=== PATIENT | male | born 1955 | race Caucasian/White ===

== ENCOUNTER → 2018-06-21 | Outpatient (CLI) | payer OTHER ==
[2018-06-21 15:43] LABS: Basophils # (A) 0.1 k/uL (0-0.2); Basophils % (A) 1 %; Eosinophils # (A) 0.1 k/uL (0-0.7); Eosinophils % (A) 2 %; HCT 49.8 % (39.0-53.0); HGB 16.5 gm/dL (13.0-17.5); Lymphocytes # (A) 1.9 k/uL (1.0-4.8); Lymphocytes % (A) 27 %; MCH 32.5 pg (25.0-35.0); MCHC 33.1 g/dL (31.0-37.0); MCV 98.2 fL (80.0-100.0); Monocytes # (A) 0.5 k/uL (0-1.0); Monocytes % (A) 7 %; Neutrophils # (A) 4.3 k/uL (1.3-7.7); Neutrophils % (A) 61 %; Platelet Count 248 k/uL (150-450); RBC 5.07 m/uL (4.30-5.90); RDW 12.6 % (11.5-15.5)
[2018-06-21 15:50] LABS: Anion Gap 8 mmol/L; Blood Urea Nitrogen 10 mg/dL (9-20); Carbon Dioxide 27 mmol/L (22-30); Chloride 102 mmol/L (98-107); Glucose 89 mg/dL (74-99); Potassium 4.6 mmol/L (3.5-5.1); Sodium 137 mmol/L (137-145)
== END | disposition home or self-care (01) ==
LOC: LABPAT 13:24
PROVIDERS: ATTEND Urology
DX: Z01.818 Encounter for other preprocedural examination (principal); C61 Malignant neoplasm of prostate; R35.0 Frequency of micturition; I10 Essential (primary) hypertension; Z79.899 Other long term (current) drug therapy; Z01.812 Encounter for preprocedural laboratory examination
CPT/HCPCS: 36415; 80048; 85025; 87086; 93005

== ENCOUNTER 2018-06-28 06:14 | Inpatient (IN) | payer OTHER ==
--- NOTE | 2018-06-24 17:02 | P.GSHP ---
History of Present Illness H&P Date: 06/24/18 Chief Complaint: Prostate cancer The patient is a 62-year-old white male found to have a PSA level of 4.61. He has no family history of prostate cancer. QUINN revealed an anodular prostate. Prostate ultrasound revealed a prostate volume of 22.5 mL. Hypoechogenicity was seen within the left mid gland. 4 of 12 biopsies showed [place] 7 (3+4) adenocarcinoma, 2 in the left mid gland, one at the right mid gland, and one at the right apex. The Prolaris score is 3.4. I had a lengthy discussion with the patient and his . We discussed alternative treatment options, primarily robotic prostatectomy versus IMRT. He has elected to undergo partial nerve sparing RALP with bilateral pelvic lymphadenectomy. - Constitutional Constitutional: Denies weight loss - Genitourinary (Male) Genitourinary: Reports nocturia, Denies erectile dysfunction Past Medical History Past Medical History: Cancer, Hypertension, Prostate Disorder Additional Past Medical History / Comment(s): prostate cancer History of Any Multi-Drug Resistant Organisms: None Reported Additional Past Surgical History / Comment(s): growth on knee removed Past Anesthesia/Blood Transfusion Reactions: No Reported Reaction Smoking Status: Current every day smoker - Past Family History Mother Family Medical History: Cancer Additional Family Medical History / Comment(s): breast cancer Medications and Allergies Home Medications Medication Instructions Recorded Confirmed Type Lisinopril-Hctz 20-25 mg 1 tab PO DAILY 06/18/18 06/18/18 History [Zestoretic 20-25] Multivitamin/Iron/Folic Acid 1 each PO DAILY 06/18/18 06/18/18 History [Centrum Adults Tablet] amLODIPine BESYLATE 5 mg PO DAILY 06/18/18 06/18/18 History Allergies Allergy/AdvReac Type Severity Reaction Status Date / Time No Known Allergies Allergy Verified 06/18/18 14:09 Surgical - Exam - General well developed, well nourished, no distress - Respiratory normal respiratory effort, clear to auscultation - Cardiovascular Rhythm: regular Abnormal Heart Sounds: no systolic murmur, no diastolic murmur, no rub, no S3 Gallop, no S4 Gallop, no click, no other - Abdomen Abdomen: soft, non tender, no guarding, no rigid, no rebound Hernia: no none, no inguinal, no epigastric, no incisional, no reducible, no femoral, no umbilical, no scrotal, no incarcerated - Genitourinary normal penis with no external lesions, testicles non-tender - Rectum Rectum: normal sphincter tone, no masses - Psychiatric oriented to time, oriented to person, oriented to place, speech is normal, memory intact Assessment and Plan (1) Malignant neoplasm of prostate Status: Acute Code(s): C61 - MALIGNANT NEOPLASM OF PROSTATE SNOMED Code(s): 931532729 Plan: Partial nerve sparing robotic-assisted laparoscopic radical prostatectomy (RALP) with bilateral pelvic lymphadenectomy. The procedure has been reviewed in detail with the patient and his . Potential risks were discussed, which include anesthesia, bleeding, infection, bowel injury, neurovascular injury, lymphocele, urinary leak, and vesical neck contracture. The possible need to convert to an open procedure was discussed. The possible need for adjuvant therapy was also discussed. The patient understands the likelihood of postoperative urinary incontinence, which may fail to resolve. He is also aware of the possibility of postoperative erectile dysfunction despite partial nerve- sparing.
[~2018-06-28 06:14] MED LIST: DEXAMETHASONE SOD PHOSPHATE 10 MG/ML 1 ML VIAL IV ONE; HEPARIN SODIUM,PORCINE 5,000 UNIT/ML 1 ML VIAL SQ ONE; HYDROmorphone 0.5 MG/0.5 ML SYRINGE IVP PRN; MIDAZOLAM (PF) 2 MG/2 ML VIAL IV PRN; ONDANSETRON 4 MG/2 ML VIAL IVP ONE; SCOPOLAMINE 1.5MG/72HR PATCH TRANSDERM ONE; ceFAZolin IN SWFI 2 GM/20 ML SYRINGE IVP ONE
[2018-06-28] MEDS: LACTATED RINGERS 1,000 ML IV SCH ×2 (07:01→07:07)
[2018-06-28] MEDS ORDERED: LIDOCAINE 1% 20 ML VIAL (10MG/ML) FOR IV START INTRADERMA ONE (07:02)
[2018-06-28] MEDS ORDERED: HYDROmorphone (PF) 1 MG/ML ONE (07:25)
[2018-06-28] MEDS ORDERED: KETAMINE 10 MG/ML 20 ML VIAL ONE (07:25)
[2018-06-28] MEDS ORDERED: fentaNYL (PF) 50 MCG/ML 2 ML AMP ONE (07:25)
[2018-06-28] MEDS ORDERED: LIDOCAINE 1% INJ 10MG/ML (20 ML MDV) ONE (07:25)
[2018-06-28] MEDS ORDERED: ePHEDrine SULFATE/0.9% NACL/PF 50 MG/5 ML SYRINGE IV ONE (07:25)
[2018-06-28] MEDS ORDERED: MIDAZOLAM 2 MG/2 ML VIAL ONE (07:25)
[2018-06-28] MEDS ORDERED: PROPOFOL 10 MG/ML 20 ML VIAL IV ONE (07:25)
[2018-06-28] MEDS ORDERED: GLYCOPYRROLATE 0.2 MG/ML 2 ML VIAL ONE (07:25)
[2018-06-28] MEDS ORDERED: SUCCINYLCHOLINE CHLORIDE 100 MG/5 ML SYR IV ONE (07:25)
[2018-06-28] MEDS ORDERED: NEOSTIGMINE 1 MG/ML 10 ML VIAL ONE (07:25)
[2018-06-28] MEDS ORDERED: ROCURONIUM BROMIDE 10 MG/ML 10 ML VIAL IV ONE (07:25)
[2018-06-28] MEDS ORDERED: BUPIVACAINE (PF) 0.5% 30 ML VIAL SQ ONE (08:25)
--- NOTE | 2018-06-28 11:13 | P.OP ---
Date of Procedure: 06/28/18 Preoperative Diagnosis: Adenocarcinoma of the prostate, clinical stage TIc NX M0 Postoperative Diagnosis: Same Procedure(s) Performed: Robotic-assisted laparoscopic prostatectomy (RALP) with bilateral pelvic lymphadenectomy Anesthesia: VERONICA Surgeon: Junior Main Mixer And Scaler #1: Carolina Morales Estimated Blood Loss (ml): 150 IV fluids (ml): 1,100 Condition: stable Disposition: PACU Indications for Procedure: The patient is a 62-year-old white male found to have a PSA level of 4.61. He has no family history of prostate cancer. QUINN revealed an anodular prostate. Prostate ultrasound revealed a prostate volume of 22.5 mL. Hypoechogenicity was seen within the left mid gland. 4 of 12 biopsies showed [place] 7 (3+4) adenocarcinoma, 2 in the left mid gland, one at the right mid gland, and one at the right apex. The Prolaris score is 3.4. I had a lengthy discussion with the patient and his . We discussed alternative treatment options, primarily robotic prostatectomy versus IMRT. He has elected to undergo partial nerve sparing RALP with bilateral pelvic lymphadenectomy. Operative Findings: No evidence of extraprostatic disease. Description of Procedure: The patient was taken in the operating room and placed in the dorsal lithotomy position, with his legs supported in Gabriel stirrups. He was carefully positioned on a beanbag for stability. The abdomen and external genitalia were prepped and draped sterilely. A Campo catheter was inserted. The Veress needle was passed through the anterior abdominal wall immediately cephalad to the umbilicus, and insufflation was performed to a pressure of 20 mm Hg. Once insufflation was performed, the Veress needle was removed and a supraumbilical incision was made, through which a 12 mm camera port was placed. Under camera guidance, 3 8 mm robotic ports were placed, 2 on the left and one on the right. An additional 12 mm port was placed on the right lateral side for use as an medical assistant supervisor port. A 5 mm port was placed to the right of the camera port for suction. The patient was placed in Trendelenburg position, and docking was then performed to the da David system utilizing a 4-arm approach. The abdomen was examined. The sigmoid colon was mobilized out of the pelvis. The peritoneum was incised lateral to the medial umbilical ligaments bilaterally, exposing the pubis. The peritoneum was then incised across the midline, allowing the bladder flap to be taken down. The endopelvic fascia was opened bilaterally, and muscular attachments from the urogenital diaphragm were swept away from the prostate. Bilateral pelvic lymphadenectomies were performed in the standard fashion. The peritoneal incisions were extended in a cephalad direction, and the vas deferens were divided bilaterally. Margins of dissection were the bifurcation of the iliac vessels proximally, the circumflex iliac vein distally, the external iliac artery laterally, and the obturator nerve medially. A combination of sharp and blunt dissection was used. Care was taken to avoid any neurovascular injury, and the use of monopolar electrocautery was avoided immediately adjacent to neurovascular structures. The lymphatic package was clipped distally. No enlarged lymph nodes were encountered. There were no complications. The vesical neck was incised transversely, down to the lumen. The Campo catheter was brought out through the anterior vesical neck incision and was used for traction. The posterior aspect of the vesical neck was incised, such that the full-thickness of the vesical neck was divided. The anterior layer of the Denonvilliers fascia was incised, exposing the vas deferens. Each were isolated and divided. Next, each of the seminal vesicles were dissected away from adjacent tissues, and vascular attachments were cauterized and divided. The posterior leaf of Denonvilliers fascia was incised transversely, allowing entry into the plane between the prostate and rectum. With lateral spreading, this plane was developed down to the apex. This exposed the lateral vascular pedicles bilaterally. These were clipped and divided in an antegrade fashion, down to the apex. The use of electrocautery was avoided to prevent thermal damage to the nerves. The remaining apical attachments were swept away from the prostate. The dorsal venous complex was incised, as well as periurethral tissue. At this point, only the urethra remained intact. This was transected immediately distal to the prostatic apex using cold scissors. The specimen was placed within a specimen bag. The dorsal venous complex was sutured using a V-Loc suture in a running fashion. The suture was passed through the periosteum of the pubis periurethral support. A second V-Loc suture was then used to place the Chandra stitch, incorporating the rhabdosphincter and the edge of Denonvilliers fascia. This allowed the bladder to be taken down to the urethra, leaving the vesical neck immediately adjacent to the urethra. The vesicourethral anastomosis was then performed using a V-Loc suture in a running fashion. After completing the anastomosis, an 18-Greenlandic Campo catheter was placed and approximately 150 mL of 0.9 normal saline were instilled into the bladder. No extravasation of irrigant from the vesicourethral anastomosis was noted. Hemostasis was excellent, and Surgicel was placed over the vascular pedicles. Tisseel was sprayed into the pelvis over the vascular pedicles, dorsal vein, and vesicourethral anastomosis. The patient was returned to the supine position. Undocking was performed, and the specimen bag sutures were passed through the camera port. After removing all the ports and allowing all of the CO2 to be released from the peritoneal cavity, the camera port incision was enlarged to allow removal of the surgical specimen. The fascia of this incision was then closed using 0 Vicryl suture in an interrupted [id number] fashion. Each of the skin incisions were then closed using 4-0 Monocryl suture in a subcuticular fashion. Marcaine was injected at each of the incision sites. Dermabond was applied to each incision. The Campo catheter was connected to gravity drainage. All sponge and needle counts were correct. The patient tolerated the procedure well was taken to the recovery room in stable condition.
[2018-06-28] MEDS ORDERED: ACETAMINOPHEN TAB 325 MG TAB PO PRN (11:14)
[2018-06-28] MEDS ORDERED: ONDANSETRON 4 MG/2 ML VIAL IVP PRN (11:14)
[2018-06-28] MEDS ORDERED: LACTATED RINGERS 1,000 ML IV ONE (11:15)
[2018-06-28 13:57] VITALS: BMI 26.8
[2018-06-28] MEDS: DEXTROSE 5%-0.45% NACL 1,000 ML IV SCH ×2 (14:39→17:26)
[2018-06-28] MEDS: HYDROmorphone 1 MG/ML 1 ML SYRINGE IVP PRN (17:18)
[2018-06-28] MEDS: VARENICLINE 1 MG TAB PO SCH (22:05)
[2018-06-28] MEDS: HEPARIN SODIUM,PORCINE 5,000 UNIT/ML 1 ML VIAL SQ SCH (22:05)
[2018-06-29] MEDS: HYDROmorphone 1 MG/ML 1 ML SYRINGE IVP PRN ×2 (00:51→20:41)
[2018-06-29] MEDS: DEXTROSE 5%-0.45% NACL 1,000 ML IV SCH ×3 (00:57→16:47)
[2018-06-29] MEDS: KETOROLAC 30 MG/ML 1 ML VIAL IVP PRN ×2 (07:43→20:43)
[2018-06-29 07:48] VITALS: RESP 16
--- NOTE | 2018-06-29 09:53 | P.PN ---
Subjective Progress Note Date: 06/29/18 The patient is in his first postoperative day from a robotic-assisted prostatectomy. The surgery was uneventful. He had a moderate amount of discomfort overnight. His urine output is been marginal. On examination his abdomen was soft. There is some bruising on the left lateral side consistent with some perioperative bleeding. His vital signs are stable. His urine is flowing freely . Rest of the examination is unremarkable. I will observe him another 24 hours of. We will monitor his urine output. I will give him a bolus of fluid. Objective - Vital Signs Vital signs: Vital Signs Temp 97.5 F L 06/29/18 07:00 Pulse 89 06/29/18 07:00 Resp 16 06/29/18 07:00 BP 96/63 06/29/18 07:00 Pulse Ox 95 06/29/18 07:00 Intake & Output 06/28/18 06/29/18 06/29/18 18:59 06:59 18:59 Intake Total 1700 Output Total 850 1025 Balance 850 -1025 Intake: IV 1700 Output: Urine 700 1025 Estimated Blood Loss 150 Other: Voiding Method Indwelling Catheter Indwelling Catheter Indwelling Catheter
[2018-06-29] MEDS ORDERED: SODIUM CHLORIDE 0.9% 500 ML 500 ML IV ONE ×2 (10:13→15:41)
[2018-06-29] MEDS: HEPARIN SODIUM,PORCINE 5,000 UNIT/ML 1 ML VIAL SQ SCH ×2 (10:22→20:41)
[2018-06-29] MEDS: amLODIPine 5 MG TAB PO SCH (12:14)
[2018-06-29] MEDS: VARENICLINE 1 MG TAB PO SCH ×2 (12:14→20:41)
[2018-06-29] MEDS: LISINOPRIL-HCTZ 20-25 MG 1 EACH TAB PO SCH (12:14)
[2018-06-30] MEDS: DEXTROSE 5%-0.45% NACL 1,000 ML IV SCH ×2 (04:19→08:04)
[2018-06-30 07:20] VITALS: BP 111/60; PULSE 105; TEMP 98.9
[2018-06-30] MEDS: VARENICLINE 1 MG TAB PO SCH (07:47)
[2018-06-30] MEDS: KETOROLAC 30 MG/ML 1 ML VIAL IVP PRN (08:04)
[2018-06-30] MEDS: HEPARIN SODIUM,PORCINE 5,000 UNIT/ML 1 ML VIAL SQ SCH (08:04)
--- NOTE | 2018-06-30 09:56 | P.DS ---
Providers Date of admission: 06/28/18 06:14 Attending physician: Junior Main Primary care physician: [facility] Course: the patient was admitted 06/28 for robotic-assisted prostatectomy by Dr. Main. He underwent this uneventfully. Postoperatively he did well. He had a moderate amount of gas and pain in the first 24 hours thus he was kept a second 24 hours. This morning he is passing gas his a week from Sunday. Postoperative instructions been given. Pathology report is pending upon discharge. He is instructed to call us with any problems. His abdomen was soft. His urine output is good. He feels much better. He be discharged home today. He is discharged home with an indwelling catheter for another week. He'll follow-up with Dr. Main Patient Condition at Discharge: Good Plan - Discharge Summary Discharge Rx Participant: No New Discharge Prescriptions: New Ciprofloxacin HCl [Cipro] 250 mg PO Q12HR #6 tablet Hydrocodone/Acetaminophen [[place] 5-325] 1 - 2 each PO Q4HR PRN #6 tab PRN Reason: Pain No Action amLODIPine BESYLATE 5 mg PO DAILY Lisinopril-Hctz 20-25 mg [Zestoretic 20-25] 1 tab PO DAILY Multivitamin/Iron/Folic Acid [Centrum Adults Tablet] 1 each PO DAILY Varenicline [Chantix Continuing Pack] 1 tab PO BID Discharge Medication List Lisinopril-Hctz 20-25 mg [Zestoretic 20-25] 1 tab PO DAILY 06/18/18 [History] Multivitamin/Iron/Folic Acid [Centrum Adults Tablet] 1 each PO DAILY 06/18/18 [History] amLODIPine BESYLATE 5 mg PO DAILY 06/18/18 [History] Ciprofloxacin HCl [Cipro] 250 mg PO Q12HR #6 tablet 06/28/18 [Rx] Hydrocodone/Acetaminophen [[place] 5-325] 1 - 2 each PO Q4HR PRN #6 tab 06/28/18 [Rx] Varenicline [Chantix Continuing Pack] 1 tab PO BID 06/28/18 [History] Follow up Appointment(s)/Referral(s): Junior Main MD [STAFF PHYSICIAN] - 07/09/18 Patient Instructions/Handouts: Campo Catheter Placement and Care (DC), Robot Assisted Laparoscopic Prostatectomy (DC), Urinary Leg Bag (GEN) Activity/Diet/Wound Care/Special Instructions: Discharge home with Campo catheter. Instruct patient to use overnight drainage bag as well as urinary leg bag. Okay to shower. Diet as tolerated. No lifting, driving, or strenuous activity. Reassure patient that abdominal wall ecchymosis and penoscrotal swelling are normal. Instruct patient to begin taking antibiotics one day prior to Campo catheter removal on July 09, 2018. Discharge Disposition: HOME SELF-CARE
[2018-06-30] MEDS: amLODIPine 5 MG TAB PO SCH (11:01)
[2018-06-30] MEDS: LISINOPRIL-HCTZ 20-25 MG 1 EACH TAB PO SCH (11:01)
== END 2018-06-30 10:48 | disposition home or self-care (01) | DRG 708 ==
LOC: 2ORMAIN 06:14 → 4SSUR 12:07
PROVIDERS: ADMIT Urology; ATTEND Urology
PROC: 07BC4ZX Excision of Pelvis Lymphatic, Percutaneous Endoscopic Approach, Diagnostic (ICD-10-PCS; 2018-06-28)
PROC: 8E0W4CZ Robotic Assisted Procedure of Trunk Region, Percutaneous Endoscopic Approach (ICD-10-PCS; 2018-06-28)
PROC: 0VT04ZZ Resection of Prostate, Percutaneous Endoscopic Approach (ICD-10-PCS; principal; 2018-06-28 07:30)
DX: C61 Malignant neoplasm of prostate (principal); I10 Essential (primary) hypertension; F17.200 Nicotine dependence, unspecified, uncomplicated; Z79.899 Other long term (current) drug therapy; Z80.3 Family history of malignant neoplasm of breast
CPT/HCPCS: 86850; 86900; 86901; 88307; 88309

== ENCOUNTER 2018-07-07 15:42 | Emergency (ER) | payer OTHER ==
[2018-07-07 15:53] VITALS: BP 124/69; PULSE 88; RESP 18; TEMP 98.9
--- NOTE | 2018-07-07 16:23 | ED ---
Male Urogenital HPI - General Chief complaint: Urogenital Stated complaint: Urogenital Time Seen by Provider: 07/07/18 16:06 Source: patient Mode of arrival: ambulatory Limitations: no limitations - History of Present Illness Initial comments: Patient is a 62-year-old male presenting for Campo catheter dysfunction. Patient had a robot-assisted prostatectomy on June 28 without complication. He states that this morning, he noticed that his Campo catheter was clogged and it was not draining. There was a little bit of leakage around the catheter. He admits a little bit of distention in the lower abdomen but no fevers or chills, no nausea/vomiting/diarrhea. He also denies any chest pain or shortness breath. He states he has had bruising on his legs which are secondary to the surgery. He also states that he has had a little bit of blood clots in the leg bag. - Related Data Home Medications Medication Instructions Recorded Confirmed Lisinopril-Hctz 20-25 mg 1 tab PO DAILY 06/18/18 06/28/18 [Zestoretic 20-25] Multivitamin/Iron/Folic Acid 1 each PO DAILY 06/18/18 06/28/18 [Centrum Adults Tablet] amLODIPine BESYLATE 5 mg PO DAILY 06/18/18 06/28/18 Varenicline [Chantix Continuing 1 tab PO BID 06/28/18 06/28/18 Pack] Previous Rx's Medication Instructions Recorded Ciprofloxacin HCl [Cipro] 250 mg PO Q12HR #6 tablet 06/28/18 Hydrocodone/Acetaminophen [[place] 1 - 2 each PO Q4HR PRN #6 tab 06/28/18 5-325] Allergies Allergy/AdvReac Type Severity Reaction Status Date / Time No Known Allergies Allergy Verified 07/07/18 15:53 Review of Systems ROS Statement: Those systems with pertinent positive or pertinent negative responses have been documented in the HPI. Constitutional: Negative for chills, fatigue and fever. HENT: Negative for congestion. Respiratory: Negative for chest tightness, shortness of breath and wheezing. Negative for cough Cardiovascular: Negative for chest pain and palpitations. Gastrointestinal: Negative for abdominal pain. Positive for abdominal distention, negative for diarrhea, nausea and vomiting. Genitourinary: Negative for dysuria. Musculoskeletal: Negative for back pain, neck pain and neck stiffness. Skin: Positive for color change. Neurological: Negative for dizziness, speech difficulty, weakness and light- headedness. Psychiatric/Behavioral: Negative for agitation and confusion. Negative for anxiety ROS Other: All systems not noted in ROS Statement are negative. Past Medical History Past Medical History: Cancer, Hypertension, Prostate Disorder Additional Past Medical History / Comment(s): prostate cancer History of Any Multi-Drug Resistant Organisms: None Reported Additional Past Surgical History / Comment(s): growth on knee removed Past Anesthesia/Blood Transfusion Reactions: No Reported Reaction Past Psychological History: No Psychological Hx Reported Smoking Status: Current every day smoker Past Alcohol Use History: Daily Past Drug Use History: None Reported - Past Family History Mother Family Medical History: Cancer Additional Family Medical History / Comment(s): breast cancer General Exam - General Exam Comments Initial Comments: Constitutional: Pt appears well-developed and well-nourished. No distress. Head: Normocephalic and atraumatic. Eyes: EOM are normal. Neck: Normal range of motion. Neck supple. Cardiovascular: Normal rate, regular rhythm, S1 normal, S2 normal and normal heart sounds. Exam reveals no gallop and no friction rub. No murmur heard. Pulmonary/Chest: Effort normal and breath sounds normal. No tachypnea and no bradypnea. No respiratory distress. No wheezes or rales noted. Abdominal: Soft. Bowel sounds are normal. Pt exhibits no shifting dullness, no pulsatile liver, no fluid wave, no abdominal bruit and no ascites. There is no rigidity, no rebound, no guarding, no tenderness at McBurney's point and negative Castaneda's sign. There is mild tenderness and mild distention of the suprapubic region. Musculoskeletal: Normal range of motion. Neurological: Pt is alert and oriented to person, place, and time. No cranial nerve deficit. Skin: Skin is warm and dry. No rash noted. Pt is not diaphoretic. No erythema. No pallor. There is diffuse ecchymosis on the inner thighs and in the inguinal genital region. Psychiatric: Pt has a normal mood and affect. Pt behavior is normal. Thought content normal. Limitations: no limitations Course Vital Signs 07/07/18 15:51 Temperature 98.9 F Pulse Rate 88 Respiratory 18 Rate Blood Pressure 124/69 O2 Sat by Pulse 97 Oximetry Medical Decision Making - Medical Decision Making Bladder scan revealed that there was about 333 mL of urine in the bladder. It is suspected that there was urinary retention secondary to clots in the Campo c atheter. Campo was irrigated and approximately 300 mL of urine was returned. Patient stated that he had significant improvement. Case is discussed with Dr. Vu and no further workup including urinalysis was recommended in that the patient should follow up in clinic. Patient was instructed to do so and noted to be resting in bed currently in no acute distress at the time of disposition. Disposition Clinical Impression: Malfunction of Campo catheter Disposition: HOME SELF-CARE Condition: Good Instructions (If sedation given, give patient instructions): Robot Assisted Laparoscopic Prostatectomy (DC) Is patient prescribed a controlled substance at d/c from ED?: No Referrals: Alicia Brady DO [Primary Care Provider] - 1-2 days Junior Main MD [STAFF PHYSICIAN] - 1-2 days Time of Disposition: 16:42
== END 2018-07-07 17:15 | disposition home or self-care (01) ==
LOC: EC 15:42
DX: T83.098A Other mechanical complication of other urinary catheter, initial encounter (principal); I10 Essential (primary) hypertension; F17.200 Nicotine dependence, unspecified, uncomplicated; Z79.899 Other long term (current) drug therapy; Z85.46 Personal history of malignant neoplasm of prostate
CPT/HCPCS: 99283

== ENCOUNTER → 2018-07-23 | Outpatient (CLI) | payer OTHER | END | disposition home or self-care (01) | LOC: LABWHC1 10:55 | PROVIDERS: ATTEND Urology | DX: C61 Malignant neoplasm of prostate (principal) | CPT/HCPCS: 36415; 84153 ==

== ENCOUNTER → 2018-11-05 | Outpatient (CLI) | payer OTHER ==
[2018-11-05 09:56] LABS: Basophils # (A) 0.1 k/uL (0-0.2); Basophils % (A) 1 %; Eosinophils # (A) 0.2 k/uL (0-0.7); Eosinophils % (A) 3 %; HCT 49.4 % (39.0-53.0); HGB 16.4 gm/dL (13.0-17.5); Lymphocytes # (A) 1.9 k/uL (1.0-4.8); Lymphocytes % (A) 27 %; MCH 31.3 pg (25.0-35.0); MCHC 33.3 g/dL (31.0-37.0); Mean Platelet Volume 8.4; Monocytes # (A) 0.5 k/uL (0-1.0); Monocytes % (A) 7 %; Neutrophils # (A) 4.1 k/uL (1.3-7.7); Neutrophils % (A) 59 %; Platelet Count 257 k/uL (150-450); RBC 5.25 m/uL (4.30-5.90); RDW 15.1 % (11.5-15.5); WBC 6.9 k/uL (3.8-10.6)
[2018-11-05 17:29] LABS: African American GFR (CKD) 93.1 (60.0-200.0); Albumin 4.4 g/dL (3.80-4.90); Albumin/Globulin Ratio 1.69 (1.60-3.17); Anion Gap 8.9 mmol/L (4.00-12.00); Calcium 9.9 mg/dL (8.7-10.3); Carbon Dioxide 25.1 mmol/L (21.6-31.8); Chol/HDL Ratio 3.52; Globulin 2.6 g/dL (1.6-3.3); LDL Cholesterol,Calculated 129.6 mg/dL (0.0-131.0); Total Bilirubin 0.7 mg/dL (0.2-1.2); VLDL Calculation 29.4 mg/dL (5.00-40.00)
== END | disposition home or self-care (01) ==
LOC: LABWHC1 09:10
PROVIDERS: ATTEND Urology
DX: C61 Malignant neoplasm of prostate (principal); Z13.29 Encounter for screening for other suspected endocrine disorder; Z13.220 Encounter for screening for lipoid disorders
CPT/HCPCS: 36415; 80053; 80061; 84153; 84443; 85025

== ENCOUNTER → 2019-05-05 | Outpatient (CLI) | payer OTHER | END | disposition home or self-care (01) | LOC: LABWHC1 11:42 | PROVIDERS: ATTEND Urology | DX: C61 Malignant neoplasm of prostate (principal) | CPT/HCPCS: 36415; 84153 ==

== ENCOUNTER 2022-10-09 20:47 | Observation (INO) | payer BC, MEDICARE ==
--- NOTE | 2022-10-09 21:23 | XR ---
EXAMINATION TYPE: XR chest 2V DATE OF EXAM: 10/09/2022 9:16 PM COMPARISON: None TECHNIQUE: XR chest 2V Frontal and lateral views of the chest. CLINICAL INDICATION:Male, 66 years old with history of Chest Pain; FINDINGS: Lungs/Pleura: There is no evidence of pleural effusion, focal consolidation, or pneumothorax. Pulmonary vascularity: Unremarkable. Heart/mediastinum: Cardiomediastinal silhouette is unremarkable. Musculoskeletal: No acute osseous pathology. IMPRESSION: No acute cardiopulmonary disease/process.
--- NOTE | 2022-10-09 21:24 | ED ---
Chest Pain HPI - General Chief Complaint: Chest Pain Stated Complaint: Chest Pain, Numbness in arms Time Seen by Provider: 10/09/22 20:56 Source: family Mode of arrival: ambulatory Limitations: no limitations - History of Present Illness Initial Comments: This patient is a 66-year-old man who presents to have evaluation of chest pains. He states he has been having episodes of pain going back a number of days. He indicates pain across the chest is tight feeling that lasts for a number of minutes and then resolves. Tonight's episode was accompanied by diaphoresis. He has not noted worsening or relieving factors. He states that it can come on at rest. Patient does smoke, approximately a pack of cigarettes per day though less since he started having the pains. He states that his symptoms have resolved at the time of history and physical. He has not seen cardiology or had any cardiac testing in the past. MD Complaint: chest pain -: days(s) Onset: during rest Pain Location: left chest, right chest Pain Radiation: RUE, LUE Severity: moderate Quality: tightness Consistency: intermittent Anginal Symptoms: diaphoresis Treatments Prior to Arrival: aspirin - Related Data Home Medications Medication Instructions Recorded Confirmed Losartan Potassium [Cozaar] 100 mg PO DAILY 10/09/22 10/09/22 hydroCHLOROthiazide [Hydrodiuril] 25 mg PO DAILY 10/09/22 10/09/22 Allergies Allergy/AdvReac Type Severity Reaction Status Date / Time No Known Allergies Allergy Verified 10/09/22 21:35 Review of Systems ROS Statement: Those systems with pertinent positive or pertinent negative responses have been documented in the HPI. ROS Other: All systems not noted in ROS Statement are negative. Constitutional: Denies: fever Respiratory: Denies: cough, dyspnea Cardiovascular: Reports: chest pain. Denies: palpitations, orthopnea, edema, syncope Gastrointestinal: Denies: abdominal pain, nausea, vomiting Genitourinary: Denies: dysuria, hematuria Musculoskeletal: Denies: back pain Skin: Denies: rash Neurological: Denies: headache, weakness, numbness EKG Findings - EKG Results: EKG: interpreted by ANTWAN, sinus rhythm (Rate 77 bpm), normal axis, normal QRS Past Medical History Past Medical History: Cancer, Hypertension, Prostate Disorder Additional Past Medical History / Comment(s): prostate cancer History of Any Multi-Drug Resistant Organisms: None Reported Additional Past Surgical History / Comment(s): growth on knee removed Past Anesthesia/Blood Transfusion Reactions: No Reported Reaction Past Psychological History: No Psychological Hx Reported Smoking Status: Current every day smoker Past Alcohol Use History: Daily Past Drug Use History: None Reported - Past Family History Mother Family Medical History: Cancer Additional Family Medical History / Comment(s): breast cancer General Exam Limitations: no limitations General appearance: alert, in no apparent distress Head exam: Present: atraumatic, normocephalic Eye exam: Present: normal appearance. Absent: scleral icterus, conjunctival injection ENT exam: Present: normal oropharynx Neck exam: Present: normal inspection Respiratory exam: Present: normal lung sounds bilaterally. Absent: respiratory distress, wheezes, rales, rhonchi, stridor Cardiovascular Exam: Present: regular rate, normal rhythm, normal heart sounds. Absent: systolic murmur, diastolic murmur, rubs, gallop GI/Abdominal exam: Present: soft. Absent: distended, tenderness, guarding, rebound, rigid, mass Extremities exam: Present: normal inspection, normal capillary refill. Absent: pedal edema, calf tenderness Back exam: Present: normal inspection. Absent: CVA tenderness (R), CVA tenderness (L) Neurological exam: Present: alert Skin exam: Present: warm, dry, intact, normal color. Absent: rash Course Vital Signs 10/09/22 10/09/22 10/09/22 20:48 20:50 21:23 Temperature 98.1 F Pulse Rate 88 78 Pulse Rate [ 66 [employer] Professional ] Respiratory 18 16 Rate Blood Pressure 185/87 149/96 O2 Sat by Pulse 96 95 Oximetry 10/09/22 10/09/22 10/09/22 21:24 21:50 22:00 Temperature Pulse Rate 65 65 Pulse Rate [ [employer] ] Respiratory 20 16 16 Rate Blood Pressure 141/72 141/70 O2 Sat by Pulse 95 96 Oximetry Chest Pain MDM - MDM The patient had chest x-ray which I interpreted as being negative for acute infiltrate, pneumothorax, congestive heart failure Disposition Clinical Impression: Chest pain Disposition: ADMITTED IP TO THIS HOSP Condition: Good Is patient prescribed a controlled substance at d/c from ED?: No
[2022-10-09 21:29] LABS: Basophils % (A) 1 %; Eosinophils # (A) 0.2 k/uL (0-0.7); Eosinophils % (A) 3 %; HCT 46.9 % (39.0-53.0); HGB 15.7 gm/dL (13.0-17.5); Lymphocytes # (A) 2.1 k/uL (1.0-4.8); Lymphocytes % (A) 33 %; MCH 32.8 pg (25.0-35.0); MCHC 33.6 g/dL (31.0-37.0); MCV 97.7 fL (80.0-100.0); Mean Platelet Volume 9.1; Monocytes # (A) 0.5 k/uL (0-1.0); Monocytes % (A) 8 %; Neutrophils # (A) 3.5 k/uL (1.3-7.7); Neutrophils % (A) 54 %; Platelet Count 229 k/uL (150-450); RDW 13.1 % (11.5-15.5); WBC 6.5 k/uL (3.8-10.6)
[2022-10-09 21:45] LABS: Partial Thromboplastin Time 26.8 sec (22.0-30.0); Prothrombin Time 10.5 sec (9.0-12.0)
[2022-10-09 21:46] LABS: ALT 28 U/L (4-49); AST 29 U/L (17-59); African American GFR (CKD) >90 (>60 ml/min/1.73 sqM); Albumin 4.2 g/dL (3.5-5.0); Alkaline Phosphatase 104 U/L (38-126); Anion Gap 12 mmol/L; Blood Urea Nitrogen 13 mg/dL (9-20); Calcium 9.4 mg/dL (8.4-10.2); Carbon Dioxide 21 mmol/L (22-30); Chloride 98 mmol/L (98-107); Glucose 89 mg/dL (74-99); Magnesium 2.2 mg/dL (1.6-2.3); Non-African American GFR(CKD) 88 (>60 ml/min/1.73 sqM); Potassium 4.2 mmol/L (3.5-5.1); Sodium 131 mmol/L (137-145); Total Bilirubin 0.7 mg/dL (0.2-1.3); Total Protein 7.7 g/dL (6.3-8.2)
[2022-10-09] MEDS ORDERED: NITROGLYCERIN SL TABS 0.4 MG TAB SUBLINGUAL PRN (22:33)
[2022-10-09] MEDS ORDERED: ASPIRIN 81 MG PO STA (22:33)
[2022-10-10] MEDS ORDERED: LOSARTAN 50 MG TAB PO SCH (09:00)
[2022-10-10] MEDS ORDERED: hydroCHLOROthiazide 25 MG TAB PO SCH (09:00)
[2022-10-10] MEDS ORDERED: ASPIRIN 325 MG TAB PO SCH (09:00)
--- NOTE | 2022-10-10 10:55 | P.CRDCN ---
History of Present Illness Consult date: 10/10/22 Consult reason: chest pain History of present illness: History of present illness: This is a 66-year-old with no previous cardiac history. He does not follow with a inside sales trainer. He has past medical history of hypertension, prostate cancer status post surgery 3-4 years ago, active tobacco use and dependence. Patient states he came in the hospital due to pressure tightness in his mid chest and tingling in his arms. This is been on and off for the past 2-3 weeks. It has happened when he was sleeping woke him up with difficulty breathing until he calm down. He also had sweats with this. He denies having any cough, no fever or chills. He is a smoker, back to a half a pack per day trying to quit smoking. He is retired construction supervisor/carpenter. Patient does not have any pain at this time. Blood pressure readings have been elevated patient has just received his morning medications. EKG sinus rhythm without acute ST changes Chest x-ray: No acute findings CBC INR unremarkable. Sodium 131 and potassium 4.2. BUN 13 creatinine 0.91. Liver function tests normal. Magnesium 2.2. Troponin negative 3. Home cardiac medications: Hydrochlorothiazide 25 mg daily, losartan 100 mg daily Review Of Systems: At the time of my evaluation: Constitutional: No fever, no chills. No weakness, fatigue or lethargy. EENT: No headache. No dizziness. Lungs: No shortness of breath, cough, no sputum production. No wheezing. Cardiovascular: No chest pain, no lower extremity edema. No palpitations. No paroxysmal nocturnal dyspnea. No orthopnea. No lightheadedness or dizziness. No syncopal episodes. Abdominal: No abdominal pain. No nausea, vomiting. No diarrhea. No constipation. No bloody or tarry stools. Genitourinary: No dysuria.. No urinary retention. Musculoskeletal: No myalgias. No muscle weakness, no frequent falls. No back pain. No neck pain. Integumentary: No wounds. No rash. No unusual bruising. Neurologic: No aphasia. No facial droop. No change in mentation. No head injury. No headache. Physical examination: Gen: This is a 66-year-old resting in the ears stretcher and appears to be comfortable and in no acute distress. VS: reviewed HEENT: Head is atraumatic, normocephalic. Pupils equal, round. Sclerae is anicteric. NECK: Supple. No JVD. . LUNGS: Clear to auscultation. No wheezes or rhonchi. No intercostal retractions. HEART: Regular rate and rhythm. No murmur. ABDOMEN: Soft No tenderness. EXTREMITIES: No pedal edema. No calf tenderness. NEUROLOGICAL: Patient is awake, alert and oriented x3. Assessment: Chest pain, acute coronary syndrome ruled out Hypertension History of prostate cancer Active tobacco use and dependence Plan: Continue patient's home antihypertensive medications Obtain stress echocardiogram today Obtain 2-D echocardiogram and Doppler study to assess cardiac structure and function If the above testing is unremarkable, patient is cleared for discharge home and may follow-up in the office in one to 2 weeks. Thank you kindly for this consultation. Nurse practitioner note has been reviewed, I agree with documented findings and plan of care. Patient was seen and examined. Past Medical History Past Medical History: Cancer, Hypertension, Prostate Disorder Additional Past Medical History / Comment(s): prostate cancer History of Any Multi-Drug Resistant Organisms: None Reported Additional Past Surgical History / Comment(s): growth on knee removed Past Anesthesia/Blood Transfusion Reactions: No Reported Reaction Past Psychological History: No Psychological Hx Reported Smoking Status: Current every day smoker Past Alcohol Use History: Daily Past Drug Use History: None Reported - Past Family History Mother Family Medical History: Cancer Additional Family Medical History / Comment(s): breast cancer Medications and Allergies Home Medications Medication Instructions Recorded Confirmed Type Losartan Potassium [Cozaar] 100 mg PO DAILY 10/09/22 10/09/22 History hydroCHLOROthiazide [Hydrodiuril] 25 mg PO DAILY 10/09/22 10/09/22 History Allergies Allergy/AdvReac Type Severity Reaction Status Date / Time No Known Allergies Allergy Verified 10/09/22 21:35 Physical Exam Vitals: Vital Signs Temp Pulse Pulse Resp BP Pulse Ox 10/10/22 07:18 97.6 F 70 16 136/96 95 10/10/22 06:00 68 17 146/91 95 10/10/22 05:00 64 8 L 158/86 93 L 10/10/22 04:10 73 19 149/89 94 L 10/10/22 03:30 66 17 148/91 92 L 10/10/22 02:00 74 16 151/86 95 10/10/22 01:30 64 134/93 95 10/10/22 01:00 67 135/79 93 L 10/10/22 00:30 68 17 135/85 94 L 10/10/22 00:00 73 16 126/80 10/09/22 23:10 76 145/93 94 L 10/09/22 22:50 77 143/90 93 L 10/09/22 22:00 65 16 141/70 96 10/09/22 21:50 65 16 141/72 95 10/09/22 21:24 20 10/09/22 21:23 65 10/09/22 20:50 78 16 149/96 95 10/09/22 20:48 98.1 F 88 18 185/87 96 Intake and Output 10/09/22 10/10/22 10/10/22 22:59 06:59 14:59 Other: Weight 86.183 kg Results 10/09/22 21:07 10/09/22 21:07 Cardiac Enzymes 10/09/22 10/09/22 10/09/22 Range/Units 21:07 21:07 23:58 AST 29 (17-59) U/L Troponin I <0.012 <0.012 (0.000-0.034) ng/mL 10/10/22 Range/Units 02:41 AST (17-59) U/L Troponin I <0.012 (0.000-0.034) ng/mL Coagulation 10/09/22 Range/Units 21:07 PT 10.5 (9.0-12.0) sec APTT 26.8 (22.0-30.0) sec CBC 10/09/22 Range/Units 21:07 WBC 6.5 (3.8-10.6) k/uL RBC 4.80 (4.30-5.90) m/uL Hgb 15.7 (13.0-17.5) gm/dL Hct 46.9 (39.0-53.0) % Plt Count 229 (150-450) k/uL Comprehensive Metabolic Panel 10/09/22 Range/Units 21:07 Sodium 131 L (137-145) mmol/L Potassium 4.2 (3.5-5.1) mmol/L Chloride 98 (98-107) mmol/L Carbon Dioxide 21 L (22-30) mmol/L BUN 13 (9-20) mg/dL Creatinine 0.91 (0.66-1.25) mg/dL Glucose 89 (74-99) mg/dL Calcium 9.4 (8.4-10.2) mg/dL AST 29 (17-59) U/L ALT 28 (4-49) U/L Alkaline Phosphatase 104 (38-126) U/L Total Protein 7.7 (6.3-8.2) g/dL Albumin 4.2 (3.5-5.0) g/dL Current Medications Generic Name Dose Route Start Last Admin Trade Name Freq PRN Reason Stop Dose Admin Aspirin 325 mg 10/10/22 09:00 10/10/22 08:21 Aspirin 325 Mg Tab PO 325 mg DAILY ISSA Administration Hydrochlorothiazide 25 mg 10/10/22 09:00 10/10/22 08:22 Hydrochlorothiazide 25 Mg Tab PO 25 mg DAILY ISSA Administration Losartan Potassium 100 mg 10/10/22 09:00 10/10/22 08:21 Losartan 50 Mg Tab PO 100 mg DAILY ISSA Administration Nitroglycerin 0.4 mg 10/09/22 22:33 Nitroglycerin Sl Tabs 0.4 Mg Tab SUBLINGUAL Q5M PRN Chest Pain Intake and Output 10/09/22 10/10/22 10/10/22 22:59 06:59 14:59 Other: Weight 86.183 kg 10/09/22 21:07 10/09/22 21:07
[2022-10-10 11:08] LABS: Chol/HDL Ratio 4.71 Ratio; LDL Cholesterol,Calculated 107.5 mg/dL (0.0-131.0)
--- NOTE | 2022-10-10 11:35 | CA ---
Stress Echo Report Edgar Sanchez Age: 66 Gender: M : 1955 Exam Date: 10/10/2022 10:35 Exam Location: [facility] Ht (in): 70 Wt (lb): 190 Ordering Physician: Maria Del Carmen Alexandre Referring Physician: Bettie CEBALLOS Internet Application Developer: WILNER, Technologist Procedure CPT: Indication: CP ICD-9 Codes: Rhythm: Patient History: Cardiac Medications: Medications in past 24 hours: Contrast: Stress Results Protocol: Noah Total dose(mL): Exercise Duration (min:sec): 6:[address] Depression (mm): Angina Score: Dee Score: METS: 7.5 Resting HR: 85 Resting BP: 138 / 86 Peak HR: 148 Peak BP: 215 / 59 Max Predicted HR: 155 95 % Max Predicted HR Target HR: 132 Double Product: [id number] Stress Summary: BP Response: Reason for Termination: MAX EXERTION/TARGET HR Cardiac Symptoms: FATIGUE ECG Analysis Resting ECG: Stress ECG: Arrhythmia: Echo Analysis Resting Echo: Peak Echo Analysis: MEASUREMENTS (Male/Female) Normal Values CONCLUSIONS Baseline EKG revealed a normal sinus rhythm without significant ST-T changes. Patient walked on a standard Noah protocol for a total duration of 6 minutes and 14 seconds. Resting heart rate was 85 bpm. Peak heart rate was 148 bpm. Resting blood pressure was 138/86. Peak blood pressure was 215/60. Patient developed fatigue. He did not have angina there was no arrhythmia there were no ST segment changes to indicate ischemia. By EKG criteria this is a negative stress test with fair exercise capacity Baseline echo images revealed normal wall motion wall thickening of all segments At peak exercise there was good augmentation of the front wall motion wall thickening of all segments suggesting that there is no evidence of any stress-induced ischemia on this study Final impression: #1 negative stress test with fair exercise capacity by EKG criteria #2 normal stress echo Cardigan without evidence of ischemia. Dr. Ranjana Keen MD (Electronically Signed) Final Date: 10 October 2022 11:35
--- NOTE | 2022-10-10 13:01 | P.HPIM ---
History of Present Illness H&P Date: 10/10/22 History of present illness; patient is a 66-year-old gentleman with past medical history significant for tobacco abuse, hypertension presented to the ER because of chest pain. Patient stated that he has been having these intermittent episodes of chest pain lasting a few minutes for the last couple of days. Patient states the chest pain is central in location, feels like tightness around his chest, no aggravating or relieving factors associated with this chest pain, no radiation of this chest pain. Denies any shortness of breath associated with this chest pain. Patient stated that this pain can be brought on at rest as well. Denies any fever or chills. Denies any nausea, vomiting or abdominal pain. Denies any palpitations. Because of chest pain, patient came to the ER Initial lab work done in the ER showed WBC 6.5, hemoglobin 15.7, platelet count 229, sodium 131, potassium 4.2, BUN 13, creatinine 0.91, magnesium 2.2 troponin 0.012 EKG done in the ER showed ventricular rate of 77, QRS 94, no ST segment elevation, no T-wave inversion seen in any leads. Chest x-ray done in the ER showed no acute cardioverted process Patient admitted to medicine service REVIEW OF SYSTEMS: CONSTITUTIONAL: No fever, no malaise, no fatigue. HEENT: No recent visual problems or hearing problems. Denied any sore throat. CARDIOVASCULAR: As mentioned in HPI PULMONARY: As mentioned in HPI GASTROINTESTINAL: No diarrhea, no nausea, no vomiting, no abdominal pain. NEUROLOGICAL: No headaches, no weakness, no numbness. HEMATOLOGICAL: Denies any bleeding or petechiae. GENITOURINARY: Denies any burning micturition, frequency, or urgency. MUSCULOSKELETAL/RHEUMATOLOGICAL: Denies any joint pain, swelling, or any muscle pain. ENDOCRINE: Denies any polyuria or polydipsia. The rest of the 14-point review of systems is negative. PHYSICAL EXAMINATION: GENERAL: The patient is alert and oriented x3, not in any acute distress. Well developed, well nourished. HEENT: Pupils are round and equally reacting to light. EOMI. No scleral icterus. No conjunctival pallor. Normocephalic, atraumatic. No pharyngeal erythema. No thyromegaly. CARDIOVASCULAR: S1 and S2 present. No murmurs, rubs, or gallops. PULMONARY: Chest is clear to auscultation, no wheezing or crackles. ABDOMEN: Soft, nontender, nondistended, normoactive bowel sounds. No palpable organomegaly. MUSCULOSKELETAL: No joint swelling or deformity. EXTREMITIES: No cyanosis, clubbing, or pedal edema. NEUROLOGICAL: Gross neurological examination did not reveal any focal deficits. SKIN: No rashes. Assessment and plan Chest pain Hypertension Tobacco addiction Monitor vital signs Monitor CBC Monitor CMP Continue telemetry monitoring Trend troponins. Ordered d-dimer Resume home meds of hydrochlorothiazide and losartan. Consult cardiology Labs and medication were reviewed.. Continue same treatment. Continue with symptomatic treatment. Resume home medication. Monitor labs and vitals. DVT and GI prophylaxis. Further recommendations as per clinical course of the patient Dictation was produced using [employer] dictation software. please excuse any grammatical, word or spelling errors. Past Medical History Past Medical History: Cancer, Hypertension, Prostate Disorder Additional Past Medical History / Comment(s): prostate cancer History of Any Multi-Drug Resistant Organisms: None Reported Additional Past Surgical History / Comment(s): growth on knee removed Past Anesthesia/Blood Transfusion Reactions: No Reported Reaction Past Psychological History: No Psychological Hx Reported Smoking Status: Current every day smoker Past Alcohol Use History: Daily Past Drug Use History: None Reported - Past Family History Mother Family Medical History: Cancer Additional Family Medical History / Comment(s): breast cancer Medications and Allergies Home Medications Medication Instructions Recorded Confirmed Type Losartan Potassium [Cozaar] 100 mg PO DAILY 10/09/22 10/09/22 History hydroCHLOROthiazide [Hydrodiuril] 25 mg PO DAILY 10/09/22 10/09/22 History Allergies Allergy/AdvReac Type Severity Reaction Status Date / Time No Known Allergies Allergy Verified 10/09/22 21:35 Physical Exam Vitals: Vital Signs Temp Pulse Pulse Resp BP Pulse Ox 10/10/22 07:18 97.6 F 70 16 136/96 95 10/10/22 06:00 68 17 146/91 95 10/10/22 05:00 64 8 L 158/86 93 L 10/10/22 04:10 73 19 149/89 94 L 10/10/22 03:30 66 17 148/91 92 L 10/10/22 02:00 74 16 151/86 95 08/08/23 01:30 64 134/93 95 08/08/23 01:00 67 135/79 93 L 10/10/22 00:30 68 17 135/85 94 L 10/10/22 00:00 73 16 126/80 10/09/22 23:10 76 145/93 94 L 10/09/22 22:50 77 143/90 93 L 10/09/22 22:00 65 16 141/70 96 10/09/22 21:50 65 16 141/72 95 10/09/22 21:24 20 10/09/22 21:23 65 10/09/22 20:50 78 16 149/96 95 10/09/22 20:48 98.1 F 88 18 185/87 96 Intake and Output 10/09/22 10/10/22 10/10/22 22:59 06:59 14:59 Other: Weight 86.183 kg Results CBC & Chem 7: 10/09/22 21:07 10/09/22 21:07 Labs: Abnormal Lab Results - Last 24 Hours (Table) 10/09/22 Range/Units 21:07 Sodium 131 L (137-145) mmol/L Carbon Dioxide 21 L (22-30) mmol/L
--- NOTE | 2022-10-10 13:05 | P.DS ---
Providers Date of admission: 10/09/22 22:34 Expected date of discharge: 10/10/22 Attending physician: Eli De La Rosa Consults: 10/09/22 22:34 Consult Physician Routine Consulting Provider: Devang Jensen Consult Reason/Comments: chest pain Do you want consulting provider notified?: Yes Primary care physician: Alicia Brady Hospital Course: Discharge diagnoses; Chest pain, acute coronary syndrome ruled out Hypertension History of prostate cancer Active tobacco use and dependence Hospital course; patient is a 66-year-old gentleman with past medical history significant for tobacco abuse, hypertension presented to the ER because of chest pain. Patient stated that he has been having these intermittent episodes of chest pain lasting a few minutes for the last couple of days. Patient states the chest pain is central in location, feels like tightness around his chest, no aggravating or relieving factors associated with this chest pain, no radiation of this chest pain. Denies any shortness of breath associated with this chest pain. Patient stated that this pain can be brought on at rest as well. Denies any fever or chills. Denies any nausea, vomiting or abdominal pain. Denies any palpitations. Because of chest pain, patient came to the ER Initial lab work done in the ER showed WBC 6.5, hemoglobin 15.7, platelet count 229, sodium 131, potassium 4.2, BUN 13, creatinine 0.91, magnesium 2.2 troponin 0.012 EKG done in the ER showed ventricular rate of 77, QRS 94, no ST segment elevation, no T-wave inversion seen in any leads. Chest x-ray done in the ER showed no acute cardioverted process Patient admitted to medicine service Patient was seen by cardiology, they ordered a stress echo, stress echo was reviewed with cardiology there was no evidence of any ischemia, cardiology cleared the patient for discharge PHYSICAL EXAMINATION: GENERAL: The patient is alert and oriented x3, not in any acute distress. Well developed, well nourished. HEENT: Pupils are round and equally reacting to light. EOMI. No scleral icterus. No conjunctival pallor. Normocephalic, atraumatic. No pharyngeal erythema. No thyromegaly. CARDIOVASCULAR: S1 and S2 present. No murmurs, rubs, or gallops. PULMONARY: Chest is clear to auscultation, no wheezing or crackles. ABDOMEN: Soft, nontender, nondistended, normoactive bowel sounds. No palpable organomegaly. MUSCULOSKELETAL: No joint swelling or deformity. EXTREMITIES: No cyanosis, clubbing, or pedal edema. NEUROLOGICAL: Gross neurological examination did not reveal any focal deficits. SKIN: No rashes. Dictation was produced using [employer] dictation software. please excuse any grammatical, word or spelling errors. Patient Condition at Discharge: Good Plan - Discharge Summary New Discharge Prescriptions: New Aspirin 81 mg PO DAILY #30 tab Continue hydroCHLOROthiazide [Hydrodiuril] 25 mg PO DAILY Losartan Potassium [Cozaar] 100 mg PO DAILY Discharge Medication List Losartan Potassium [Cozaar] 100 mg PO DAILY 10/09/22 [History] hydroCHLOROthiazide [Hydrodiuril] 25 mg PO DAILY 10/09/22 [History] Aspirin 81 mg PO DAILY #30 tab 10/10/22 [Rx] Follow up Appointment(s)/Referral(s): Ranjana Keen MD [STAFF PHYSICIAN] - 1 Week Alicia Brady DO [Primary Care Provider] - 1-2 days Patient Instructions/Handouts: Chest Pain (ED)
[2022-10-10 13:31] VITALS: BP 149/89; PULSE 99; RESP 18; TEMP 98.7
--- NOTE | 2022-10-11 09:45 | CA ---
Transthoracic Echo Report Name: Edgar Sanchez Age: 66 Gender: M : 1955 Exam Date: 10/10/2022 10:48 Exam Location: [facility] Ht (in): 70 Wt (lb): 190 Ordering Physician: Maria Del Carmen Alexandre Attending/Referring Phys: [id number], Bettie Area Manager Michelle Blair RDCS Procedure CPT: Indications: LVF Cardiac Hx: Technical Quality: Fair Contrast 1: Total Dose (mL): Contrast 2: Total Dose (mL): MEASUREMENTS (Male / Female) Normal Values 2D ECHO LV Diastolic Diameter PLAX 3.7 cm 4.2 - 5.9 / 3.9 - 5.3 cm LV Systolic Diameter PLAX 2.5 cm IVS Diastolic Thickness 1.6 cm 0.6 - 1.0 / 0.6 - 0.9 cm LVPW Diastolic Thickness 1.5 cm 0.6 - 1.0 / 0.6 - 0.9 cm LV Relative Wall Thickness 0.9 RV Internal Dim ED PLAX 4.0 cm LA Volume 53.2 cm??? 18 - 58 / 22 - 52 cm??? M-MODE Aortic Root Diameter MM 3.6 cm LA Systolic Diameter MM 4.2 cm LA Ao Ratio MM 1.2 AV Cusp Separation MM 2.0 cm DOPPLER AV Peak Velocity 176.2 cm/s AV Peak Gradient 12.4 mmHg AV Mean Velocity 113.5 cm/s AV Mean Gradient 6.1 mmHg AV Velocity Time Integral 27.6 cm LVOT Peak Velocity 128.3 cm/s LVOT Peak Gradient 6.6 mmHg LVOT Velocity Time Integral 28.0 cm MV Area PHT 2.4 cm??? Mitral E Point Velocity 75.3 cm/s Mitral A Point Velocity 106.6 cm/s Mitral E to A Ratio 0.7 MV Deceleration Time 320.5 ms MV E' Velocity 9.4 cm/s Mitral E to MV E' Ratio 8.0 TR Peak Velocity 224.5 cm/s TR Peak Gradient 20.2 mmHg Right Ventricular Systolic Press 25.2 mmHg FINDINGS Left Ventricle Moderately increased left ventricular wall thickness. Left ventricular cavity size normal. Normal left ventricular systolic function with no obvious regional wall motion abnormalities. Left ventricular ejection fraction is estimated at 55 %. Right Ventricle Right ventricular dilatation. Right ventricular systolic pressure within normal limits. Right Atrium Right atrium not well visualized. Left Atrium Normal left atrial size. Mitral Valve Structurally normal mitral valve. Mild mitral annular calcification. No mitral stenosis, regurgitation or prolapse. Aortic Valve No aortic valve stenosis or regurgitation. Tricuspid Valve Structurally normal tricuspid valve. Mild tricuspid regurgitation. Pulmonic Valve Structurally normal pulmonic valve. Pericardium No pericardial effusion. Echo free space anterior to the right ventricle likely represents a fat pad. Aorta Normal size aortic root and proximal ascending aorta. CONCLUSIONS Normal LV size and systolic function. Mild mitral annular calcification. Mild mitral and tricuspid regurgitation. No pericardial effusion no pulmonary hypertension Previewed by: Dr. Ranjana Keen MD (Electronically Signed) Final Date: 11 October 2022 09:44
== END 2022-10-10 13:30 | disposition home or self-care (01) ==
LOC: EC 20:47 → 6NMEDSUR 22:34
PROVIDERS: ADMIT Hospitalist; ATTEND Hospitalist
DX: R07.9 Chest pain, unspecified (principal); I10 Essential (primary) hypertension; F17.210 Nicotine dependence, cigarettes, uncomplicated; Z79.899 Other long term (current) drug therapy; Z85.46 Personal history of malignant neoplasm of prostate
CPT/HCPCS: 99285; 36415; 93005 ×2; 93306; 93351; 85379; 80061; 80053; 83735; 84484 ×2; 85025; 85610; 85730; 71046; G0378 ×2